=== PATIENT | female | born 1995 | race Caucasian/White ===

== ENCOUNTER 2018-03-17 04:49 | Observation (INO) | payer BC ==
[~2018-03-17] VITALS: Ht 172.7 cm; Wt 65.8 kg
[2018-03-17] MEDS ORDERED: NS(*) 0.9% 1000 ML BAG 1,000 ML IV ONE (04:54)
--- NOTE | 2018-03-17 04:54 | ER Report ---
History and Physical Time Seen By MD: 04:53 HPI/ROS CHIEF COMPLAINT: Abdominal pain, vomiting HISTORY OF PRESENT ILLNESS: 23-year-old female presents ambulatory to the ER complaining of abdominal pain in the right and upper lower quadrants. She notes onset last evening. She ate a pulled pork sandwich. Patient denies dysuria, frequency or hematuria. Patient denies fever or chills. She denies history of abdominal surgery. Patient denies diarrhea. Her last normal bowel movement was yesterday. Her last menstrual period was 2 weeks ago. REVIEW OF SYSTEMS: Respiratory: No cough, no dyspnea. Cardiovascular: No chest pain, no palpitations. Gastrointestinal: As above Musculoskeletal: No back pain. Allergies: Coded Allergies: amoxicillin (Verified Allergy, Unknown, 03/17/18) Home Meds Reported Medications Hydrocodone Bit/Acetaminophen (NORCO 5-325 TABLET) 1 Each Tablet, 1-2 EACH PO Q4H PRN for PAIN, #10 TAB 03/17/18 Ciprofloxacin Hcl (CIPROFLOXACIN HCL) 500 Mg Tablet, 500 MG PO Q12H for 5 Days, TAB 03/17/18 [ Control] No Conflict Check, 1 TAB PO QDAY 03/17/18 Past Medical/Surgical History Unremarkable Reviewed Nurses Notes: Yes Old Medical Records Reviewed: Yes Constitutional Vital Sign - Last 24 Hours 03/17/18 03/17/18 03/17/18 03/17/18 04:56 05:05 05:19 05:30 Pulse 67 B/P (MAP) 103/56 (72) 108/53 (71) 111/61 (78) Pulse Ox 93 03/17/18 03/17/18 03/17/18 03/17/18 05:49 06:19 06:30 06:49 Pulse 74 67 64 B/P (MAP) 99/35 (56) Pulse Ox 97 95 98 03/17/18 03/17/18 03/17/18 03/17/18 06:49 07:00 07:05 07:20 Pulse 78 76 68 B/P (MAP) 113/70 (84) Pulse Ox 97 98 Physical Exam Vital signs stable, afebrile, pulse ox normal General Appearance: The patient is alert, has no immediate need for airway protection and no current signs of toxicity. Moderate distress, slightly pale appearing Eyes: Pupils equal and round no injection. Respiratory: Chest is non tender, lungs are clear to auscultation. Cardiac: regular rate and rhythm Gastrointestinal: Abdomen is soft, moderate right lower quadrant tenderness, no masses, bowel sounds normal. Musculoskeletal: Neck: Neck is supple and non tender. Extremities have full range of motion and are non tender. Skin: No rashes or lesions. DIFFERENTIAL DIAGNOSIS: After history and physical exam differential diagnosis was considered for abdominal pain including but not limited to appendicitis, cholecystitis, gastritis and urinary tract infection. Medical Decision Making Data Points Result Diagram: 03/17/18 0500 03/17/18 0500 Laboratory Hematology Test 03/17/18 04:54 03/17/18 05:00 Urine Color Yellow Urine Clarity Clear Urine pH 6.0 pH (4.8-9.5) Urine Specific [place] 1.021 Urine Protein Negative mg/dL (NEGATIVE) Urine Glucose (UA) Negative mg/dL (NEGATIVE) Urine Ketones Negative mg/dL (NEGATIVE) Urine Blood Negative (NEGATIVE) Urine Nitrite Negative (NEGATIVE) Urine Bilirubin Negative (NEGATIVE) Urine Urobilinogen Negative mg/dL (0.2-1.9) Urine Leukocyte Esterase Negative (NEGATIVE) Urine RBC 1 /HPF (0-2/HPF) Urine WBC 1 /HPF (0-5/HPF) Urine Squamous Epithelial Cells Many /LPF (</=FEW) Urine Bacteria Negative /HPF (NONE-FEW) Urine Mucus Few /HPF (NONE-FEW) Red Blood Count 4.81 M/uL (4.17-5.56) Mean Corpuscular Volume 88.6 fL (80.0-96.0) Mean Corpuscular Hemoglobin 29.8 pg (26.0-33.0) Mean Corpuscular Hemoglobin Concent 33.7 g/dL (32.0-36.0) Red Cell Distribution Width 12.9 % (11.5-14.5) Mean Platelet Volume 10.1 fL (7.2-11.1) Neutrophils (%) (Auto) 85.6 % (39.4-72.5) Lymphocytes (%) (Auto) 6.7 % (17.6-49.6) Monocytes (%) (Auto) 6.5 % (4.1-12.4) Eosinophils (%) (Auto) 0.7 % (0.4-6.7) Basophils (%) (Auto) 0.5 % (0.3-1.4) Nucleated RBC Relative Count (auto) 0.0 /100WBC Neutrophils # (Auto) 14.4 K/uL (2.0-7.4) Lymphocytes # (Auto) 1.1 K/uL (1.3-3.6) Monocytes # (Auto) 1.1 K/uL (0.3-1.0) Eosinophils # (Auto) 0.1 K/uL (0.0-0.5) Basophils # (Auto) 0.1 K/uL (0.0-0.1) Nucleated RBC Absolute Count (auto) 0.00 K/uL Sodium Level 138 mmol/L (137-145) Potassium Level 3.4 mmol/L (3.5-5.0) Chloride Level 103 mmol/L (98-107) Carbon Dioxide Level 23 mmol/L (22-31) Blood Urea Nitrogen 14 mg/dl (7-18) Creatinine 0.80 mg/dl (0.52-1.04) Glomerular Filtration Rate Calc > 60.0 Random Glucose 115 mg/dl (75-110) Calcium Level 9.3 mg/dl (8.4-10.2) Total Bilirubin 1.2 mg/dl (0.2-1.3) Aspartate Amino Transf (AST/SGOT) 21 U/L (0-35) Alanine Aminotransferase (ALT/SGPT) 31 U/L (0-56) Alkaline Phosphatase 48 U/L (0-126) Total Protein 7.0 g/dl (6.3-8.2) Albumin 4.1 g/dl (3.5-5.0) Amylase Level 79 U/L (0-110) Lipase 100 U/L (23-300) Human Chorionic Gonadotropin, Qual Negative (NEGATIVE) Chemistry Test 03/17/18 04:54 03/17/18 05:00 Urine Color Yellow Urine Clarity Clear Urine pH 6.0 pH (4.8-9.5) Urine Specific [place] 1.021 Urine Protein Negative mg/dL (NEGATIVE) Urine Glucose (UA) Negative mg/dL (NEGATIVE) Urine Ketones Negative mg/dL (NEGATIVE) Urine Blood Negative (NEGATIVE) Urine Nitrite Negative (NEGATIVE) Urine Bilirubin Negative (NEGATIVE) Urine Urobilinogen Negative mg/dL (0.2-1.9) Urine Leukocyte Esterase Negative (NEGATIVE) Urine RBC 1 /HPF (0-2/HPF) Urine WBC 1 /HPF (0-5/HPF) Urine Squamous Epithelial Cells Many /LPF (</=FEW) Urine Bacteria Negative /HPF (NONE-FEW) Urine Mucus Few /HPF (NONE-FEW) White Blood Count 16.8 k/uL (4.5-11.0) Red Blood Count 4.81 M/uL (4.17-5.56) Hemoglobin 14.4 g/dL (12.0-16.0) Hematocrit 42.6 % (34.0-47.0) Mean Corpuscular Volume 88.6 fL (80.0-96.0) Mean Corpuscular Hemoglobin 29.8 pg (26.0-33.0) Mean Corpuscular Hemoglobin Concent 33.7 g/dL (32.0-36.0) Red Cell Distribution Width 12.9 % (11.5-14.5) Platelet Count 214 K/uL (150-450) Mean Platelet Volume 10.1 fL (7.2-11.1) Neutrophils (%) (Auto) 85.6 % (39.4-72.5) Lymphocytes (%) (Auto) 6.7 % (17.6-49.6) Monocytes (%) (Auto) 6.5 % (4.1-12.4) Eosinophils (%) (Auto) 0.7 % (0.4-6.7) Basophils (%) (Auto) 0.5 % (0.3-1.4) Nucleated RBC Relative Count (auto) 0.0 /100WBC Neutrophils # (Auto) 14.4 K/uL (2.0-7.4) Lymphocytes # (Auto) 1.1 K/uL (1.3-3.6) Monocytes # (Auto) 1.1 K/uL (0.3-1.0) Eosinophils # (Auto) 0.1 K/uL (0.0-0.5) Basophils # (Auto) 0.1 K/uL (0.0-0.1) Nucleated RBC Absolute Count (auto) 0.00 K/uL Glomerular Filtration Rate Calc > 60.0 Calcium Level 9.3 mg/dl (8.4-10.2) Total Bilirubin 1.2 mg/dl (0.2-1.3) Aspartate Amino Transf (AST/SGOT) 21 U/L (0-35) Alanine Aminotransferase (ALT/SGPT) 31 U/L (0-56) Alkaline Phosphatase 48 U/L (0-126) Total Protein 7.0 g/dl (6.3-8.2) Albumin 4.1 g/dl (3.5-5.0) Amylase Level 79 U/L (0-110) Lipase 100 U/L (23-300) Human Chorionic Gonadotropin, Qual Negative (NEGATIVE) Urinalysis Test 03/17/18 04:54 Urine Color Yellow Urine Clarity Clear Urine pH 6.0 pH (4.8-9.5) Urine Specific [place] 1.021 Urine Protein Negative mg/dL (NEGATIVE) Urine Glucose (UA) Negative mg/dL (NEGATIVE) Urine Ketones Negative mg/dL (NEGATIVE) Urine Blood Negative (NEGATIVE) Urine Nitrite Negative (NEGATIVE) Urine Bilirubin Negative (NEGATIVE) Urine Urobilinogen Negative mg/dL (0.2-1.9) Urine Leukocyte Esterase Negative (NEGATIVE) Urine RBC 1 /HPF (0-2/HPF) Urine WBC 1 /HPF (0-5/HPF) Urine Squamous Epithelial Cells Many /LPF (</=FEW) Urine Bacteria Negative /HPF (NONE-FEW) Urine Mucus Few /HPF (NONE-FEW) EKG/Imaging Imaging Results: CT scan of the abdomen and pelvis with contrast was obtained. The results of the study are findings consistent with acute appendicitis. See report. The study was read by the radiologist. I viewed the images myself on the PACS system. ED Course/Re-evaluation Clinical Indication for ER IV: Hydration, IV Access ED Course Patient was admitted to an examination room. H&P was done. The differential diagnoses was considered. On clinical examination. Patient has right lower quadrant tenderness. Diagnostic studies show a 17,[address] of the abdomen and pelvis is ordered which shows an acute appendicitis. Consult with general surgery was called. Dr. Wilian Sanchez will come see the patient. Decision to Disposition Date: Mar 17, 2018 Decision to Disposition Time: 06:46 Depart Departure Latest Vital Signs Vital Signs Date Time Temp Pulse Resp B/P (MAP) Pulse Ox O2 Delivery O2 Flow Rate FiO2 03/17/18 07:20 68 98 03/17/18 07:00 113/70 (84) Impression: Primary Impression: Acute appendicitis Additional Impression: Vomiting Condition: Improved Disposition: ADMIT FROM ER TO OR Problem Qualifiers Primary Impression: Acute appendicitis Acute appendicitis type: with localized peritonitis Qualified Codes: K35.3 - Acute appendicitis with localized peritonitis Additional Impression: Vomiting Vomiting type: unspecified Vomiting Intractability: intractable Nausea presence: with nausea Qualified Codes: R11.2 - Nausea with vomiting, unspecified BRENDEN SY DO Mar 17, 2018 04:54
[2018-03-17] MEDS ORDERED: ONDANSETRON 4 MG/2 ML VIAL IVP ONE (04:55)
[2018-03-17] MEDS ORDERED: fentaNYL CITR 100 MCG/2 ML AMP IVP ONE ×2 (05:00→05:50)
[2018-03-17] MEDS ORDERED: BIRTH CONTROL PO (05:02)
[2018-03-17 05:35] LABS: PLATELET COUNT, AUTOMATED 214 K/uL (150-450)
[2018-03-17] MEDS ORDERED: IOPAMIDOL 76% 75 ML INFUS BTL 75 ML ONE (05:57)
--- NOTE | 2018-03-17 06:49 | RADIOLOGY IMAGING REPORT ---
FACILITY: [facility] - [place] PATIENT NAME: Keila Dunbar : 1995 MR: [id number] V: [id number] EXAM DATE: ORDERING PHYSICIAN: BRENDEN SY TECHNOLOGIST: Location: [facility] Patient: Keila Dunbar : 1995 Visit/Account:[id number] Date of Sevice: 03/17/2018 Computed tomograpy abdomen and pelvis with IV contrast Indication: Right lower quadrant pain. Leukocytosis. Comparison: None available. Technique: Transaxial computed tomography images were obtained through the abdomen and pelvis follo wing the injection of nonionic iodinated intravenous contrast. Reformatted coronal and sagittal image s were also obtained. One of the following dose optimization techniques was utilized in the performance of this exam: Autom ated exposure control; adjustment of the mA and/or kV according to the patient's size; or use of an i terative reconstruction technique. Specific details can be referenced in the facility's radiology C T exam operational policy. Contrast: 75 ml of Isovue-370 IV contrast. Findings: Lower lung kapoor: Peripheral 4 mm nodule seen within the right lower lobe on image 8. If this is a l ow risk patient for malignancy, benign etiologies would be favored in a patient of this age. Lung bas es otherwise clear. Liver: Mild periportal edema is present which may be related to ongoing IV hydration. Correlate clini melanie. Biliary: Gallbladder is partially contracted and appears otherwise unremarkable. Pancreas: Normal appearance. Spleen: Normal appearance. Adrenal glands: Unremarkable. Kidneys / retroperitoneum: No stones or hydronephrosis. Small left midpole cyst. Bowel / peritoneum / mesenteries: The appendix is well-seen within the right pelvis. It is mildly dil ated and measures 8-9 mm. The wall is abnormally thickened and demonstrates avid enhancement. Mild in flammatory stranding is present about the appendix. Findings are consistent with early acute appendic itis. No extraluminal gas or suspicious fluid collection. Lymph node assessment: No pathologic adenopathy identified. Pelvic structures: Appear unremarkable. No free pelvic fluid. Vessels: No significant atherosclerotic calcifications seen throughout a nonaneurysmal abdominal aort a and branches. Musculoskeletal / Body wall: No acute or aggressive osseous abnormality. IMPRESSION: 1. CT findings consistent with acute appendicitis. No evidence of extraluminal gas or suspicious flui d collection. 2. Small left midpole renal cyst. 3. Periportal edema within the liver may be related to ongoing IV hydration. Correlate clinically. 4. Peripheral 4 mm nodule in the right lower lobe. If this is a low risk patient for malignancy, pippa gn etiologies would be favored. Results were discussed with BRENDEN SY at 03/17/2018 6:43 AM. Report Dictated By: Simon Palma at 03/17/2018 6:27 AM Report E-Signed By: Simon Palma at 03/17/2018 6:45 AM WSN:[id number]
[2018-03-17] MEDS ORDERED: NORMOSOL R SOLN(*) 1000 ML BAG 1,000 ML IV ONE ×2 (06:50→10:09)
[2018-03-17] MEDS ORDERED: cefOXitin/DEX(*) 2GM/50ML PREM 50 ML IVPB ONE (06:55)
[2018-03-17] MEDS ORDERED: FAMOTIDINE(*) 20MG/50ML PREMIX 50 ML IVPB ONE (07:35)
[2018-03-17] MEDS ORDERED: KETAMINE HCL 500 MG/10 ML VIAL ONE (08:27)
[2018-03-17] MEDS ORDERED: LIDOCAINE 2% JELLY 5 ML TUBE ONE (08:27)
[2018-03-17] MEDS ORDERED: fentaNYL CITR 100 MCG/2 ML AMP ONE ×3 (08:27→10:30)
[2018-03-17] MEDS ORDERED: PHENYLEPHRINE 10 MG/1 ML VIAL ONE (08:27)
[2018-03-17] MEDS ORDERED: ONDANSETRON 4 MG/2 ML VIAL ONE (08:27)
[2018-03-17] MEDS ORDERED: ROCURONIUM BROM 10 MG/ML 10 ML ONE (08:27)
[2018-03-17] MEDS ORDERED: PROPOFOL EMUL(*) 10MG/ML 20 ML 20 ML ONE (08:27)
[2018-03-17] MEDS ORDERED: DEXAMETHASONE SOD PHOS 10MG/ML ONE (08:27)
[2018-03-17] MEDS ORDERED: MIDAZOLAM 2 MG/2 ML VIAL ONE (08:27)
[2018-03-17] MEDS ORDERED: NS(*) 0.9% 100 ML BAG 100 ML ONE (08:27)
[2018-03-17] MEDS ORDERED: SUGAMMADEX SOD 200 MG/2 ML SDV ONE (09:44)
[2018-03-17] MEDS ORDERED: KETOROLAC 30 MG/ML VIAL ONE (10:23)
[2018-03-17] MEDS ORDERED: APAP/HYDROCODONE 325/5 TAB PO PRN (11:00)
[2018-03-17 11:15] VITALS: BP 112/66
[2018-03-17] MEDS ORDERED: CIPR-214 PO (17:27)
[2018-03-17] MEDS ORDERED: HYDR-653 PO (17:27)
[2018-03-17] MEDS ORDERED: CIPROFLOXACIN 500 MG TAB PO SCH (21:00)
--- NOTE | 2018-03-18 08:03 | HISTORY AND PHYSICAL ---
DATE OF ADMISSION: March 17, 2018 CHIEF COMPLAINT Abdominal pain. HISTORY OF PRESENT ILLNESS This is a 23-year-old female who reports that she noted right sided abdominal pain last evening when she went to bed. She previously had been in good health. She states that she was awakened at 0200 today from the pain, which was more severe, and she began to have vomiting. Currently, the patient states that the pain is localized to the right lower quadrant of her abdomen. She has poor appetite. She reports no prior occurrences of such, although she has had prior somewhat similar abdominal pain which proved to be an ovarian cyst. PAST MEDICAL HISTORY Noncontributory. PAST SURGICAL HISTORY 1. [place] teeth extraction. 2. Recent colonoscopy, which was negative (due to colon cancer in her father). CURRENT MEDICATIONS OCP. ALLERGIES AMOXICILLIN (unknown reaction type; patient was told since childhood that she is ALLERGIC to AMOXICILLIN). SOCIAL HISTORY Patient denies tobacco use. She does note alcohol use. She says it is limited to having a few drinks on each day of the weekends but "nothing too wild". She also denies use of illicit drugs. FAMILY HISTORY Positive for colon cancer in her father and also hypertension in her mother. REVIEW OF SYSTEMS CONSTITUTIONAL: No fevers. ENT/MOUTH: No dysphagia. RESPIRATORY: No cough. No dyspnea. CV: No chest pain. GI: As noted above. No history of diarrhea or constipation. No blood in stool. : No gross hematuria. NEUROLOGICAL: No history of migraines. PSYCHIATRIC: No history of anxiety or depression. MUSCULOSKELETAL: No history of trauma. No joint enlargements. ENDOCRINE: No heat or cold intolerance. HEME: No history of coagulopathy. PHYSICAL EXAMINATION GENERAL: This is a well-developed, well-nourished young adult female in no acute distress. VITAL SIGNS: Pulse rate is 67, blood pressure 113/70, O2 saturation is 98% on room air. HEAD/NECK: Head is atraumatic and normocephalic. Neck is unremarkable. Thyroid is normal size and texture. EYES: Pupils are equally reactive bilaterally. Sclerae are anicteric. Conjunctivae are not pale. ENT/MOUTH: External ears and nose appear normal. Oropharynx is unremarkable. RESPIRATORY: Lungs are clear to auscultation bilaterally. CV: Heart has regular rate and rhythm without murmur or tachycardia. ABDOMEN: Bowel sounds are positive. Abdomen is flat. It is soft. There is mild tenderness without guarding in the right lower quadrant. INTEGUMENTARY: Skin is clear, warm and dry. Nails appear normal. EXTREMITIES: No limb deformities. No leg edema. 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 PSYCHIATRIC: Patient is awake and alert. She is oriented. She responds appropriately throughout the interview and exam. LABORATORY DATA WBC 16.8 with 85.6% neutrophils, H/H 14.4/42.6, platelet count 214. CMP is normal with the only exceptions of potassium at 3.4 and random glucose of 115. Urinalysis is unremarkable with only 1 WBC seen. No bacteria seen and the specimen was clear yellow. CT scan of the abdomen and pelvis with IV contrast was done. This is remarkable only for the appendix, which is seen to be mildly dilated, measuring 8-9 mm. The wall "is abnormally thickened and demonstrates avid enhancement". There is also mild inflammatory stranding seen around the appendix. There is no extraluminal gas or suspicious fluid collections noted. ASSESSMENT Acute appendicitis. PLAN Appendectomy. [facility]
--- NOTE | 2018-03-18 08:58 | OPERATIVE REPORT 1 ---
EVENT DATE: March 17, 2018 SURGEON: Wilian Sanchez MD ANESTHESIOLOGIST: Dexter Munguia MD ANESTHESIA: General ET. PREOPERATIVE DIAGNOSIS Acute appendicitis. POSTOPERATIVE DIAGNOSIS Acute appendicitis. PROCEDURE PERFORMED Appendectomy, open. ESTIMATED BLOOD LOSS Minimal. SPECIMENS Appendix. COMPLICATIONS None. INDICATIONS Acute appendicitis. FINDINGS Mild inflammation of the appendix, which was noted to be adhesed to the posterior aspect of the cecum. DESCRIPTION OF PROCEDURE The patient was brought into the operating room and placed upon the operating table in the supine position. A time-out verified the patient's identify, the procedure and other pertinent details. The abdomen was prepped and draped in a sterile fashion after induction of general anesthesia. A 50/50 mixture of 1% lidocaine with epinephrine and 0.5% bupivacaine was injected into the skin prior to the incision. A transverse incision was made at McBurney's point and carried down through all layers of the abdominal wall in a muscle splitting fashion. When the abdominal cavity had been entered, the cecum was first encountered. This was brought up into the wound and the appendix was found to be adhesed to the posterior aspect of the cecum. There was minimal inflammation seen and no rupture and no free pus. The appendix was carefully freed from its attachments to the cecum down to its base. The appendiceal artery was divided and then tied with 2-0 silk tie. The 2-0 silk tie was placed at the base of the appendix and the clamp 0.5 cm distal. The appendix was then divided between the tie and the clamp and the appendix was removed from the field. The mucosal membrane of the appendiceal stump was carefully cauterized with the electrocautery. The wound was then copiously irrigated with warm saline. A final inspection revealed satisfactory hemostasis and closure was begun. The peritoneum was closed with a simple running suture of 3-0 chromic. The muscles were closed in individual layers with simple running sutures of #1 PDS. The subcutaneous layer was then copiously irrigated with warm saline and the skin was then closed with a running subcuticular suture of 3-0 Monocryl. A sterile dressing was applied. The patient was then awakened and taken to the recovery room in stable condition. She tolerated the procedure well. RUDOLPH
--- NOTE | 2018-03-19 07:49 | DISCHARGE SUMMARY ---
DATE OF ADMISSION: March 17, 2018 DATE OF DISCHARGE: March 17, 2018 ADMISSION DIAGNOSIS Acute appendicitis. DISCHARGE DIAGNOSIS Acute appendicitis. SURGEON Wilian Sanchez MD PROCEDURE Appendectomy, open. HISTORY OF PRESENT ILLNESS This is a 23-year-old female who presented to the emergency department earlier this morning noting that she had developed abdominal pain on the right side late yesterday when she went to bed. She was awakened at 0200 with much more severe pain associated with nausea and vomiting. She came to the emergency department, where she was found to have abdominal tenderness in the right lower quadrant, elevated WBC of 16.8 with 85.6% neutrophils and a CT scan showing changes in the appendix consistent with early acute appendicitis. On exam in the ER, she was found to have mild tenderness in the right lower quadrant with no significant guarding. PAST MEDICAL HISTORY Noncontributory. PAST SURGICAL HISTORY Limited to wisdom tooth extraction and colonoscopy. ALLERGIES AMOXICILLIN. HOSPITAL COURSE The patient was taken from the ED to the OR and underwent an open appendectomy. The appendix was found to be retrocecal in position and noted to be mildly inflamed with no rupture and no purulent fluid in the peritoneal cavity. Postoperatively, she did quite well. She was able to be started on liquids soon after the end of the case and this was advanced to regular diet in small quantities. She tolerated this quite well. Pain was readily managed with oral analgesics only. It is now later in the same day as surgery and the patient is desiring to go home and I believe this is acceptable. DISPOSITION The patient has been discharged to home to her parents' care. She is to follow a regular diet. Showering is okay. Stairs are okay. I have cautioned her that she will notice easy fatigability for two to four weeks. This is normal and will resolve. She has been instructed to do no heavy lifting (not more than 15 pounds) nor any other strenuous activity for six weeks. I have advised her not to drive for two weeks. She can leave the dressing in place in for two to three days and then remove it, after which she should redress the wound on a p.r.n. basis. She has been instructed to follow up with Dr. Elder in two weeks. DISCHARGE MEDICATIONS 1. Cipro 500 mg p.o. every 12 hours x5 days. 2. [place] 5/325 x1 p.o. every 4 hours p.r.n., quantity #10. MTDD
[2018-04-01] MEDS ORDERED: NORE-22 PO (16:23)
== END 2018-03-17 17:48 | disposition home or self-care (01) ==
LOC: ER 04:58 → OR 07:21 → MED 11:15
PROVIDERS: ADMIT Surgery; ATTEND Surgery
DX: K35.3 Acute appendicitis with localized peritonitis (principal); Z88.0 Allergy status to penicillin
CPT/HCPCS: 44950; 74177; 81001; 82150; 83690; 84703; 85025; 88304; 96361; 96365; 96366; 96375; 96376; 99284; G0378; J0694; J1100; J1885; J2250; J2370; J2405; J2704; J3010; J3490; J7030; J7050; Q9967; 82040; 82247; 82310; 82374; 82435; 82565; 82947; 84075; 84132; 84155; 84295; 84450; 84460; 84520